=== PATIENT | female | born 1930 | race Asian ===

== ENCOUNTER → 2017-03-28 | Outpatient (CLI) | payer MEDICARE ==
[~2017-03-28] MED LIST: ASPI-621 PO; ATEN25TA PO; GABA-826 PO; LISI-170 PO; METO25TA91 PO; NITR0.4T SL; OMEP40CA6 PO; PRAV20TA PO; TICA90TA PO
== END | disposition home or self-care (01) ==
LOC: RAD 12:25
PROVIDERS: ATTEND Family Medicine
DX: M51.36 Other intervertebral disc degeneration, lumbar region (principal)
CPT/HCPCS: 72110

== ENCOUNTER → 2018-12-17 | Outpatient (CLI) | payer MEDICARE ==
[~2018-12-17] MED LIST changes: -ASPI-621 PO; +ASPI81TA45 PO; -NITR0.4T SL; +NITR0.4T41 SL; +OMEP40CA42 PO; -OMEP40CA6 PO
== END | disposition home or self-care (01) ==
LOC: RAD 13:55
PROVIDERS: ATTEND Family Medicine
DX: S33.140A Subluxation of L4/L5 lumbar vertebra, initial encounter (principal); M47.817 Spondylosis without myelopathy or radiculopathy, lumbosacral region; X58.XXXA Exposure to other specified factors, initial encounter; Y93.89 Activity, other specified; Y92.89 Other specified places as the place of occurrence of the external cause; Y99.8 Other external cause status
CPT/HCPCS: 72110

== ENCOUNTER 2019-02-27 15:42 | Outpatient (CLI) | payer MEDICARE | END 2019-02-27 23:59 | disposition home or self-care (01) | LOC: CFH 15:42 | PROVIDERS: ATTEND Physician Assistant Medical | DX: I08.8 Other rheumatic multiple valve diseases (principal); R06.00 Dyspnea, unspecified; R00.2 Palpitations | CPT/HCPCS: 93306 ==

== ENCOUNTER 2020-02-03 15:09 | Inpatient (IN) | payer MEDICARE, MEDICAID ==
[~2020-02-03] VITALS: Ht 127 cm; Wt 38.2 kg
--- NOTE | 2020-02-03 15:29 | NUR ---
PT TO ROOM FROM [facility], CHANGED INTO GOWN, AWAKE & RESTLESS BUT EASILY REDIRECTABLE WITH FRIEND AT BS (SPEAKS CANTONESE), PT REQUIRES FREQ DIRECTION TO FOLLOW COMMANDS, COMFORT MEASURES PROVIDED, MONITORS IN PLACE, CALL LIGHT WITHIN REACH.
--- NOTE | 2020-02-03 15:58 | NUR ---
PT REMAINS AWAKE & RESTLESS & CONTINUES TO REQUIRE FREQ DIRECTION TO FOLLOW COMMANDS, COMFORT MEASURES PROVIDED, FRIEND AT BS, CALL LIGHT WITHIN REACH.
[2020-02-03] MEDS ORDERED: CEFTRIAXONE PMX 1GM/50ML 50 ML IVPB ONE (16:00)
[2020-02-03 16:06] LABS: BASOPHILS % (AUTO) 1 % (0-1); EOSINOPHILS % (AUTO) 0 % (1-7); LYMPHOCYTES % (AUTO) 10 % (22-44); MEAN CORPUSCULAR HEMOGLOBIN 19.7 pg (27.0-34.8); MEAN CORPUSCULAR HGB CONC 30.2 g/dL (32.4-35.8); MEAN PLATELET VOLUME 8.1 fL (7.4-10.4); MONOCYTES % (AUTO) 10 % (2-9); NEUTROPHILS % (AUTO) 79 % (42-75); PLATELET COUNT 279 x10^3/uL (130-400); RED BLOOD COUNT 3.34 x10^6/uL (3.82-5.3); RED CELL DISTRIBUTION WIDTH 18.4 % (9.6-15.2)
[2020-02-03 16:08] LABS: ALANINE AMINOTRANSFERASE 23 U/L (12-78); ALBUMIN 3.8 g/dL (3.4-5.0); ANION GAP 9 mmol/L (5-15); CALCIUM 8.7 mg/dL (8.5-10.1); CHLORIDE 109 mmol/L (98-107); CREATININE 1.11 mg/dL (0.55-1.02)
--- NOTE | 2020-02-03 16:09 | NUR ---
PT TO CT
[2020-02-03 16:12] LABS: ALKALINE PHOSPHATASE 67 U/L (45-117); BILIRUBIN,TOTAL 0.9 mg/dL (0.2-1.0); TOTAL PROTEIN 7.6 g/dL (6.4-8.2)
[2020-02-03] MEDS ORDERED: CEFTRIAXONE PMX 1GM/50ML 50 ML ONE (16:17)
[2020-02-03] MEDS ORDERED: SODIUM CHLORIDE FLUSH 10ML SYR IVF ONE (16:30)
[2020-02-03 16:37] LABS: D-DIMER (DIC) 0.47 ug/mlFEU (0.00-0.52); PROTIME 10.6 Seconds (9.6-11.5)
[2020-02-03 16:47] LABS: MD MORPH REVIEW ONLY
[2020-02-03 16:48] LABS: ANISOCYTOSIS 1+; HYPOCHROMIA 2+; MICROCYTOSIS 2+
[2020-02-03 16:49] LABS: OVALOCYTES 1+; TEAR DROPS 1+
[2020-02-03 16:50] LABS: <PLATELET ESTIMATE> ADEQUATE; <PLT MORPHOLOGY> NORMAL PLT MORPH
[2020-02-03 16:51] LABS: POLYCHROMASIA 1+
[2020-02-03 16:53] LABS: C-REACTIVE PROTEIN, QUANT 0.9 mg/dL (0.02-0.49)
[2020-02-03 16:55] LABS: MICROSCOPIC AUTO
--- NOTE | 2020-02-03 17:02 | NUR ---
PT LAYING ON GURNEY WITH EYES CLOES BUT REMAINS RESTLESS, REQUIRE\ING FREQ DIRECTION TO FOLLOW COMMANDS, COMFORT MEASURES PROVIDED, FRIEND AT , CALL LIGHT WITHIN REACH. Addendum: 02/03/20 at 1909 by GUADALUPE PT LAYING ON GURNEY WITH EYES CLOSED WITH INCREASED RESTLESSNESS- PT TRIED TO CLIMB OUT OF BED, SITTER REQUESTED, REQUIRES FREQ DIRECTION TO FOLLOW COMMANDS, COMFORT MEASURES PROVIDED, CALL LIGHT WITHIN REACH.
[2020-02-03] MEDS: DOXYCYCLINE 100 MG in DEXTROSE 5% 250 ML IV SCH (17:19)
[2020-02-03] MEDS ORDERED: HYDR-3240 PO (17:54)
[2020-02-03] MEDS ORDERED: HALOPERIDOL 5 MG/ML ONE ×4 (17:58→21:23)
[2020-02-03] MEDS ORDERED: ASPIRIN 300 MG SUPP PR ONE (18:00)
[2020-02-03] MEDS ORDERED: SODIUM CHLORIDE 0.9% 1,000ML IVBOLUS ONE (18:00)
[2020-02-03] MEDS ORDERED: HALOPERIDOL 5 MG/ML IV ONE ×3 (18:30→22:00)
--- NOTE | 2020-02-03 18:34 | NUR ---
PT INCREASINGLY RESTLESS WITH SITTER AT BS, GRABBING AT HER GROIN, PT BLADDER SCANNED (214ML), DOES NOT COMPREHEND USE OF BEDPAN OR PUREWICK AT THIS TIME, BECAME INCONT OF SMALL/MOD AMT OF URINE DURING STRAIGHT CATH; DURING LINEN CHANGE PT BECAME UNRESPONSIVE, LISTLESS, CYANOTIC AROUND MOUTH WITH DYSPNEA & IRREG BREATHING PATTERN; CODE CALLED & CANCELLED PT MAINTAINED PULSE & BREATHING BECAME MORE REGULAR WITH SPO2 >94%, PT CONTINUED TO BE LISTLESS. PT TRANSFERRED TO RM 41.
--- NOTE | 2020-02-03 18:36 | NUR ---
MOVED TO ROOM 41
[2020-02-03 18:55] VITALS: BP 84/44
[2020-02-03] MEDS ORDERED: SODIUM CHLORIDE 0.9%, 250ML IVBOLUS ONE (19:00)
[2020-02-03] MEDS ORDERED: NOREPINEPHRINE 8 MG in SODIUM CHLORIDE 0.9% 242 ML IV PRN ×2 (19:00→22:00)
[2020-02-03] MEDS ORDERED: LEVETIRACETAM 1,000 MG in SODIUM CHLORIDE 0.9% 100 ML IV ONE (19:00)
--- NOTE | 2020-02-03 19:17 | NUR ---
REPORT GIVEN TO LETY
--- NOTE | 2020-02-03 19:25 | NUR ---
BEDSIDE REPORT FROM FLO CLAY. PT LAYING IN GURNEY, RESTLESS BUT RESPONSIVE TO VERBAL. KEPPRA RUNNING, BLOOD RUNNING. PT PALE, LIPS BLUE. CO ABD PAIN, ERP AWARE. BP/SPO2/ECG MONITORING IN PLACE. SINUS ON MONITOR. BP LABILE.
[2020-02-03 19:29] VITALS: BP 117/30
--- NOTE | 2020-02-03 19:42 | NUR ---
CONVERSATION WITH ERP REGARDING PT CO ABD PAIN. VERBAL ORDERS RECEIVED FOR CT W CONTRAST. ERP AWARE OF BUN/CR, CT OKAY'D. PT ALSO TO RECEIVE ADDITIONAL 2MG HALDOL. NO REPEAT EKG PER ERP
[2020-02-03 19:52] VITALS: BP 114/38
--- NOTE | 2020-02-03 20:03 | NUR ---
MILDLY WET LUNG SOUNDS. HOSPITALIST AT BEDSIDE. TO CONTINUE TRANSFUSION. SPO2 >90% ON 2L BY NC
[2020-02-03] MEDS ORDERED: OMNIPAQUE 350 MG/ML, 100ML BOTTLE ONE (20:31)
--- NOTE | 2020-02-03 20:32 | NUR ---
MIGDALIA RN: PT TO CT WITH THIS RN, REMAINED SR ON MONITOR AND ALERT ENTIRE TIME, TOLERATED CT WELL. IV BLOOD TRANSFUSING ENTIRE TIME. PT SITTING IN GURNEY WITH HOB UP SHE IS TOLERATING BETTER WITH WET COUGH. APPLIED ALL MONITORS UPON RETURN, SEE VS. SIDE RAILS UP AND CALL LIGHT IN PLACE, REAPPLIED ARTEM PAW WARMER PT IS C/O COLD
[2020-02-03 20:55] VITALS: BP 80/50
[2020-02-03 21:10] LABS: % IRON SATURATION 7 % (20-55); IRON LEVEL 23 mcg/dL (50-170); TOTAL IRON BINDING CAPACITY 343 mcg/dL (250-450)
[2020-02-03 21:19] LABS: TRANSFERRIN 259 mg/dL (200-360)
--- NOTE | 2020-02-03 21:30 | NUR ---
PT SBP 80'S. PER ERP, SET UP FOR CENTRAL LINE AND START LEVO THROUGH PERIPHERAL ACCESS. LEVO STARTED AND TITRATED TO EFFECT.
--- NOTE | 2020-02-03 21:56 | NUR ---
CENTRAL LINE PLACED BY ERP. PT TOLERATED WELL. LEVO RUNNING PERIPHERALLY
[2020-02-03] MEDS ORDERED: BISACODYL 10 MG SUPP PR PRN (22:00)
[2020-02-03] MEDS ORDERED: ACETAMINOPHEN 325 MG TABLET PO PRN (22:00)
[2020-02-03] MEDS ORDERED: morphine SULFATE 10 MG/ML, 1ML IVPush PRN (22:00)
[2020-02-03] MEDS ORDERED: ONDANSETRON 2MG/ML, 2ML IVPush PRN (22:00)
[2020-02-03] MEDS ORDERED: LACTATED RINGERS 1,000 ML IV SCH (22:00)
[2020-02-03] MEDS: PRAVASTATIN 20 MG TABLET PO SCH (22:00)
[2020-02-03] MEDS ORDERED: CEFTRIAXONE PMX 1GM/50ML 50 ML IV SCH (22:00)
--- NOTE | 2020-02-03 22:30 | NUR ---
REPORT CALLED TO ICU WHO IS UNABLE TO TAKE PT AT THIS TIME. CENTRAL LINE ACCESS SITE BLEEDING, DRESSING CHANGED. BLEEDING CONTINUES WILL MONITOR. PT WITH SMALL HARD BM. PT CLEANED, LINENS CHANGED.
--- NOTE | 2020-02-03 23:11 | NUR ---
PT RESTING CALMLY W EYES CLOSED. CENTRAL LINE PLACEMENT CONFIRMED BY CHEST XRAY. LEVO CHANGED TO CENTRAL LINE. PT W IMPROVED RESPIRATORY EFFORT AND COLOR. VSS W LEVO INFUSING.
--- NOTE | 2020-02-04 00:52 | NUR ---
ATTEMPTED TO RE-DRESS PT'S CENTRAL LINE. CONTINUED BLEEDING. HOSPITALIST AWARE.
--- NOTE | 2020-02-04 01:15 | NUR ---
PT TRANSFERED TO A HOSPITAL BED. REMAINS ON BP/SPO2/ECG MONITORING. PT RESTING COMFORTABLY. CENTRAL LINE DRESSING REINFORCED WITH ELASTIC TAPE.
--- NOTE | 2020-02-04 02:00 | NUR ---
REPORT TO FLO ROTH
--- NOTE | 2020-02-04 02:13 | NUR ---
report from darrin assumed care of pt
--- NOTE | 2020-02-04 02:33 | NUR ---
PT MOSTLY RESTING IN BED TOSSING AND TURNING AT TIMES
[2020-02-04] MEDS: DOXYCYCLINE 100 MG in DEXTROSE 5% 250 ML IV SCH ×3 (02:48→11:48)
[2020-02-04] MEDS ORDERED: FUROSEMIDE 40 MG/4 ML ONE (03:04)
--- NOTE | 2020-02-04 03:09 | NUR ---
PT VERY RESTLESS IN BED AND LUNG SOUNDS CRACKLES, PT BANGING ON CHEST BP INCREASED TO 260/202 TAKEN TWICE ON BOTH ARMD, DR COX, NOTIFIED, NEW ORDER RECIEVED LASIX GIVEN, PTS BP WENT DOWN TO 94/36, AND BREATHING CALMED DOWN
[2020-02-04 03:43] LABS: BASOPHILS % (AUTO) 0 % (0-1); EOSINOPHILS % (AUTO) 0 % (1-7); LYMPHOCYTES % (AUTO) 7 % (22-44); MEAN CORPUSCULAR HEMOGLOBIN 21.2 pg (27.0-34.8); MEAN CORPUSCULAR HGB CONC 30.3 g/dL (32.4-35.8); MONOCYTES % (AUTO) 6 % (2-9); NEUTROPHILS % (AUTO) 87 % (42-75); PLATELET COUNT 292 x10^3/uL (130-400); RED BLOOD COUNT 3.64 x10^6/uL (3.82-5.3); RED CELL DISTRIBUTION WIDTH 19.9 % (9.6-15.2)
[2020-02-04 03:44] LABS: MD NO
[2020-02-04 03:55] LABS: ANION GAP 17 mmol/L (5-15); CALCIUM 7.9 mg/dL (8.5-10.1); CHLORIDE 114 mmol/L (98-107); CHOLESTEROL, TOTAL 123 mg/dL (140-239); CREATININE 1.13 mg/dL (0.55-1.02); TRIGLYCERIDES 77 mg/dL (50-200); VLDL CHOLESTEROL 15 mg/dL (0-25)
[2020-02-04 03:57] LABS: CHOL/HDL RATIO 2.2; HDL CHOL % 46 % (28-40); HDL CHOLESTEROL (DIRECT) 57 mg/dL (40-60); LDL CHOLESTEROL,CALCULATED 51 mg/dL (54-169); LDL/HDL RATIO 0.9 (0.5-3.0)
[2020-02-04] MEDS ORDERED: FUROSEMIDE 40 MG/4 ML IV ONE (04:00)
--- NOTE | 2020-02-04 04:31 | NUR ---
PT CONTINUES TO BE RESTLESS IN THE BED
--- NOTE | 2020-02-04 04:33 | NUR ---
WILL NOT BE GIVING PT PO MEDS OR FOOD
--- NOTE | 2020-02-04 04:57 | NUR ---
DR COX AT BEDSIDE TO SEE PT NEW ORDERS RECIEVED
[2020-02-04 05:12] VITALS: BP 119/87
--- NOTE | 2020-02-04 05:22 | NUR ---
UNIT OF PRBC STARTED PER ORDER
--- NOTE | 2020-02-04 05:23 | NUR ---
STOPPED MAINTENANCE FLUIDS PER MD ORDER
[2020-02-04] MEDS ORDERED: MORPHINE SULFATE 4 MG/ML, 1ML ONE (05:28)
[2020-02-04 05:33] VITALS: BP 111/45
--- NOTE | 2020-02-04 05:42 | NUR ---
medicated for pain with morphine per apr, pt resting much better at this time
[2020-02-04] MEDS ORDERED: OMEPRAZOLE 20 MG CAPSULE.DR PO SCH (06:00)
[2020-02-04] MEDS ORDERED: DOXYCYCLINE 100 MG in DEXTROSE 5% 250 ML IV SCH (07:00)
[2020-02-04] MEDS ORDERED: BISACODYL 10 MG SUPP PR ONE (07:00)
--- NOTE | 2020-02-04 07:14 | NUR ---
REPORT FROM CHELSEY RN, PT SLEEPING IN HOSPITAL BED WITH 1UPRBC INFUSING @125ML/H, LEVO GTT@0.1MCG/KG/MIN, PT ON 7L OXYMASK. AT BEDSIDE. ARTEM SENA TURNED OFF AT THIS TIME.
--- NOTE | 2020-02-04 07:48 | NUR ---
CALLED - MD NOTIFIED UNABLE TO DO EEG AT THIS TIME DUE TO PT INCREASED AGITATION/NOT ABLE TO LAY ON BACK, PT MORE COARSE AND COUGHING UP PINK TINGED FLUID, BLOOD FINISHED INFUSING BUT PT HAS DOSE OF KEPPRA AND VIBRAMYCIN AT 1000. PER MD GIVE LASIX 20MG AND CONTINUE VIBRAMYCIN AND KEPPRA DOSES AT THIS TIME.
[2020-02-04] MEDS ORDERED: BISACODYL 10 MG SUPP ONE (07:54)
[2020-02-04] MEDS ORDERED: FUROSEMIDE 20 MG/2 ML ONE (07:55)
[2020-02-04] MEDS ORDERED: PANTOPRAZOLE 40 MG IV ONE (07:55)
[2020-02-04] MEDS: PANTOPRAZOLE 40 MG IV IVPush SCH ×2 (07:57→20:26)
--- NOTE | 2020-02-04 08:10 | NUR ---
ATTEMPT TO CALL REPORT TO JONY Davidson RN TO CALL BACK
[2020-02-04 08:29] VITALS: BP 89/44
--- NOTE | 2020-02-04 08:53 | NUR ---
REPORT TO JONY RN, PT TRANSPORTED TO ROOM 548 WITH QUAHOGGER.
[2020-02-04] MEDS ORDERED: TICAGRELOR 90 MG TABLET PO SCH (09:00)
[2020-02-04] MEDS ORDERED: LACTULOSE 10 GM/15 ML UDC PO SCH (09:00)
[2020-02-04] MEDS ORDERED: LACTULOSE 10 GM/15 ML UDC PO PRN (09:00)
[2020-02-04] MEDS ORDERED: ASPIRIN 81 MG TABLET EC PO SCH (09:00)
[2020-02-04] MEDS: LEVETIRACETAM 1,000 MG in SODIUM CHLORIDE 0.9% 100 ML IV SCH ×2 (09:57→21:28)
[2020-02-04] MEDS: morphine SULFATE 10 MG/ML, 1ML IVPush PRN ×3 (10:33→22:11)
[2020-02-04] MEDS: CEFTRIAXONE PMX 1GM/50ML 50 ML IV SCH ×2 (10:56→22:44)
[2020-02-04] MEDS ORDERED: LORazepam 2 MG/ML, 1ML IVPush ONE (18:00)
[2020-02-04] MEDS ORDERED: LORazepam 2 MG/ML, 1ML ONE (18:04)
[2020-02-04] MEDS: PRAVASTATIN 20 MG TABLET PO SCH (20:36)
[2020-02-04] MEDS ORDERED: METOPROLOL SUCCINATE 25 MG TAB.ER.24H PO SCH (21:00)
[2020-02-04] MEDS ORDERED: LACTATED RINGERS 1,000 ML IV SCH (22:00)
[2020-02-04] MEDS: LORazepam 2 MG/ML, 1ML IVPush PRN (23:23)
[2020-02-04] MEDS ORDERED: ACETAMINOPHEN 650 MG SUPP PR PRN (23:30)
[2020-02-05] MEDS: LORazepam 2 MG/ML, 1ML IVPush PRN (03:29)
[2020-02-05 04:24] LABS: BASOPHILS % (AUTO) 0 % (0-1); EOSINOPHILS % (AUTO) 0 % (1-7); LYMPHOCYTES % (AUTO) 7 % (22-44); MEAN CORPUSCULAR HEMOGLOBIN 22.7 pg (27.0-34.8); MEAN CORPUSCULAR HGB CONC 31.1 g/dL (32.4-35.8); MEAN PLATELET VOLUME 8.5 fL (7.4-10.4); MONOCYTES % (AUTO) 6 % (2-9); NEUTROPHILS % (AUTO) 87 % (42-75); PLATELET COUNT 203 x10^3/uL (130-400); RED BLOOD COUNT 3.57 x10^6/uL (3.82-5.3); RED CELL DISTRIBUTION WIDTH 21.1 % (9.6-15.2)
[2020-02-05 04:35] LABS: MD NO
[2020-02-05 04:36] LABS: CALCIUM 8.1 mg/dL (8.5-10.1); CHLORIDE 112 mmol/L (98-107)
[2020-02-05 04:41] LABS: ALANINE AMINOTRANSFERASE 48 U/L (12-78); ALBUMIN 2.8 g/dL (3.4-5.0); ALKALINE PHOSPHATASE 58 U/L (45-117); ANION GAP 11 mmol/L (5-15); BILIRUBIN,TOTAL 0.7 mg/dL (0.2-1.0); TOTAL PROTEIN 5.7 g/dL (6.4-8.2)
[2020-02-05] MEDS ORDERED: FUROSEMIDE 40 MG/4 ML IV ONE (08:30)
[2020-02-05] MEDS ORDERED: ASPIRIN 81 MG TABLET EC PO SCH (09:00)
[2020-02-05] MEDS: LEVETIRACETAM 1,000 MG in SODIUM CHLORIDE 0.9% 100 ML IV SCH (09:14)
[2020-02-05] MEDS: PANTOPRAZOLE 40 MG IV IVPush SCH (09:14)
[2020-02-05] MEDS: CEFTRIAXONE PMX 1GM/50ML 50 ML IV SCH (10:51)
[2020-02-05] MEDS: DOXYCYCLINE 100 MG in DEXTROSE 5% 250 ML IV SCH ×2 (11:30)
[2020-02-05] MEDS ORDERED: ATROPINE OPHTH SOLN 1%, 5ML PO PRN (18:00)
[2020-02-05] MEDS ORDERED: MORPHINE 30MG/30ML PCA.SYR IV PRN (18:00)
[2020-02-05] MEDS ORDERED: LORazepam 2 MG/ML, 1ML IVPush PRN (18:00)
[2020-02-05] MEDS ORDERED: LORazepam 2 MG/ML, 1ML IVPush SCH (18:00)
[2020-02-05] MEDS ORDERED: ONDANSETRON 2MG/ML, 2ML IVPush PRN (18:00)
[2020-02-05] MEDS ORDERED: MORPHINE SULFATE 4 MG/ML, 1ML IVPush PRN (18:00)
[2020-02-05] MEDS ORDERED: SCOPOLAMINE 1MG PATCH TD PRN (18:00)
[2020-02-05] MEDS ORDERED: PRAVASTATIN 40 MG TABLET PO SCH (21:00)
== END 2020-02-05 19:05 | disposition expired | DRG 871 ==
LOC: ED 19:16 → EDIP 19:19 → CCU 02-04 09:02
PROVIDERS: ADMIT Family Medicine; ATTEND Internal Medicine
PROC: 02HV33Z Insertion of Infusion Device into Superior Vena Cava, Percutaneous Approach (ICD-10-PCS; principal; 2020-02-03)
PROC: B548ZZA Ultrasonography of Superior Vena Cava, Guidance (ICD-10-PCS; 2020-02-03)
PROC: 0T9B70Z Drainage of Bladder with Drainage Device, Via Natural or Artificial Opening (ICD-10-PCS; 2020-02-03)
PROC: 30233N1 Transfusion of Nonautologous Red Blood Cells into Peripheral Vein, Percutaneous Approach (ICD-10-PCS; 2020-02-03)
DX: A41.9 Sepsis, unspecified organism (principal); I21.4 Non-ST elevation (NSTEMI) myocardial infarction; J96.01 Acute respiratory failure with hypoxia; R65.21 Severe sepsis with septic shock; G93.41 Metabolic encephalopathy; J18.9 Pneumonia, unspecified organism; I63.9 Cerebral infarction, unspecified; E87.2 Acidosis; I50.42 Chronic combined systolic (congestive) and diastolic (congestive) heart failure; K92.2 Gastrointestinal hemorrhage, unspecified; N17.9 Acute kidney failure, unspecified; Z66 Do not resuscitate; Z51.5 Encounter for palliative care; D50.9 Iron deficiency anemia, unspecified; D73.4 Cyst of spleen; E78.00 Pure hypercholesterolemia, unspecified; E78.5 Hyperlipidemia, unspecified; E88.09 Other disorders of plasma-protein metabolism, not elsewhere classified; G40.909 Epilepsy, unspecified, not intractable, without status epilepticus; I11.0 Hypertensive heart disease with heart failure; I25.10 Atherosclerotic heart disease of native coronary artery without angina pectoris; I27.20 Pulmonary hypertension, unspecified; K56.41 Fecal impaction; R29.810 Facial weakness; R73.9 Hyperglycemia, unspecified; Z20.828 Contact with and (suspected) exposure to other viral communicable diseases; Z86.73 Personal history of transient ischemic attack (TIA), and cerebral infarction without residual deficits; I25.2 Old myocardial infarction; Z87.891 Personal history of nicotine dependence; Z95.5 Presence of coronary angioplasty implant and graft; Z79.899 Other long term (current) drug therapy
CPT/HCPCS: 36415; 36600; 70450; 71045; 74177; 80048; 80053; 80061; 81001; 82533; 82728; 82803; 83540; 83550; 83605; 83615; 83735; 83880; 84100; 84145; 84443; 84466; 84484; 85014; 85018; 85025; 85049; 85379; 85384; 85610; 85730; 86140; 86850; 86900; 86923; 87040; 87081; 93005; 93306; G0378; J0696; J1940; J1953; J2270; J7060; Q9967; C9113; J1630; J2060; J7030; J7050; J7120; P9016; U0003